=== PATIENT | male | born 1955 | race Caucasian/White ===

== ENCOUNTER 2017-01-14 08:00 | Emergency (ER) | payer BC ==
--- NOTE | 2017-01-14 16:18 | ER ---
ADMIT: 01/14/2017 RM/LOC: ER [facility] MR#: [id number] [id number] REREJANELLE CASSIDY C [address] [place] [address] Emergency Room Report SEX: M AGE: 61 : 1955 DATE: 01/14/2017 ADDENDUM: A 61-year-old white male coming in with dislocated left shoulder. He essentially was doing something on the roof and the ladder went out. He had held on to the gutter or some place with a jerk and was jerked off the ladder. He did not fall from a height, but he came in with, he said he dislocated his shoulder and with a clinical he did. This was reduced with gentle manipulation and then was reduced easily. He then had x-ray which did show no fracture plus reduction. He is put in a shoulder immobilizer and followed up with Ortho. Tylenol, Aleve, or Motrin for pain. Ice. CONDITION ON DISCHARGE: Improved. Kristofer Salazar MD/ valorie JOB #: [id number] CC: Kristofer Salazar MD, Attending Physician Addison Mullen MD, Family Physician
== END 2017-01-14 08:40 | disposition home or self-care (01) ==
LOC: ER 08:00
PROC: 0RSKXZZ Reposition Left Shoulder Joint, External Approach (ICD-10-PCS; principal; 2017-01-14)
DX: S43.005A Unspecified dislocation of left shoulder joint, initial encounter (principal); X58.XXXA Exposure to other specified factors, initial encounter